=== PATIENT | male | born 1980 | race Two or more races ===

== ENCOUNTER 2019-06-28 14:39 | Inpatient (IN) | payer OTHER ==
[~2019-06-28] VITALS: Ht 190.5 cm; Wt 62.6 kg
--- NOTE | 2019-06-28 14:56 | NUR ---
PTE REFIERE EMILY DOLOR ABDOMINAL SE MARY S/V YS EUBIAC EN AREA DE OBSERVACION
--- NOTE | 2019-06-28 17:38 | NUR ---
PT ALERTA Y ORIENTADO X3 ESFERAS SE LE ORIENTA SOBRE [place] Y REFIERE ENTEDER. SE MARY MUESTRAS DE ENOCH Y VENOPUNCION CON TECNICAS ASEPTICAS. SE ADMINSITRAN MEDICAMENTOS ORDENADOS. PT [place].
[2019-07-19] MEDS ORDERED: AMOX-CLAV 875-1 EACH PO (14:58)
[2019-07-19] MEDS ORDERED: CLONAZEPAM0.5 MG PO (16:38)
[2019-07-19] MEDS ORDERED: AMOX1TAB5 PO (16:38)
[2019-07-19] MEDS ORDERED: INTESTINEX680 M1 PO (16:38)
== END 2019-07-19 18:39 | disposition home or self-care (01) | DRG 391 ==
LOC: ER → SEC-K 21:42 → MEDI 21:42
PROVIDERS: ADMIT Internal Medicine
PROC: BW21YZZ Computerized Tomography (CT Scan) of Abdomen and Pelvis using Other Contrast (ICD-10-PCS; 2019-06-28)
PROC: 3E0336Z Introduction of Nutritional Substance into Peripheral Vein, Percutaneous Approach (ICD-10-PCS; 2019-06-29)
PROC: 02HV33Z Insertion of Infusion Device into Superior Vena Cava, Percutaneous Approach (ICD-10-PCS; 2019-07-04)
PROC: BW21Y0Z Computerized Tomography (CT Scan) of Abdomen and Pelvis using Other Contrast, Unenhanced and Enhanced (ICD-10-PCS; 2019-07-05)
PROC: 0W9F30Z Drainage of Abdominal Wall with Drainage Device, Percutaneous Approach (ICD-10-PCS; principal; 2019-07-10)
DX: K57.20 Diverticulitis of large intestine with perforation and abscess without bleeding (principal); K65.1 Peritoneal abscess; K50.00 Crohn's disease of small intestine without complications; N20.0 Calculus of kidney; R31.29 Other microscopic hematuria; F43.12 Post-traumatic stress disorder, chronic

== ENCOUNTER 2019-07-30 10:59 | Inpatient (IN) | payer OTHER ==
[~2019-07-30] VITALS: Ht 190.5 cm; Wt 57.6 kg
[~2019-07-30 10:59] MED LIST: AMOX-CLAV 875-1 EACH PO; AMOX1TAB5 PO; CLONAZEPAM0.5 MG PO; INTESTINEX680 M1 PO
[2019-08-16] MEDS ORDERED: AMOX1TAB5 PO (12:20)
[2019-08-28] MEDS ORDERED: HYOSCYAMINE0.125 M1 SL (15:04)
[2019-08-28] MEDS ORDERED: INTESTINEX680 M1 PO (15:04)
[2019-08-28] MEDS ORDERED: ULTRACET PO (15:05)
== END 2019-08-28 18:22 | disposition home or self-care (01) | DRG 331 ==
LOC: O/R 08-21 05:50 → SURH 08-21 05:50
PROVIDERS: ADMIT Surgery
PROC: 0DBN4ZZ Excision of Sigmoid Colon, Percutaneous Endoscopic Approach (ICD-10-PCS; 2019-08-21)
PROC: 0DJD8ZZ Inspection of Lower Intestinal Tract, Via Natural or Artificial Opening Endoscopic (ICD-10-PCS; 2019-08-21)
PROC: 0DBP4ZZ Excision of Rectum, Percutaneous Endoscopic Approach (ICD-10-PCS; principal; 2019-08-21 07:30)
PROC: 8E0ZXY6 Isolation (ICD-10-PCS; 2019-08-26)
DX: K57.30 Diverticulosis of large intestine without perforation or abscess without bleeding (principal); I10 Essential (primary) hypertension; F41.9 Anxiety disorder, unspecified; F43.12 Post-traumatic stress disorder, chronic; E16.2 Hypoglycemia, unspecified; R50.9 Fever, unspecified; Z20.828 Contact with and (suspected) exposure to other viral communicable diseases

== ENCOUNTER 2021-02-11 06:40 | Day surgery (SDC) | payer OTHER ==
[~2021-02-11 06:40] MED LIST changes: +HYOSCYAMINE0.125 M1 SL; +ULTRACET PO
== END 2021-02-11 10:30 | disposition home or self-care (01) ==
LOC: AMB-ENDOS 06:40
PROVIDERS: ATTEND Surgery
DX: K62.89 Other specified diseases of anus and rectum (principal); K64.3 Fourth degree hemorrhoids; Z20.822 Contact with and (suspected) exposure to COVID-19

== ENCOUNTER 2022-07-13 06:00 | Day surgery (SDC) | payer OTHER ==
[~2022-07-13] VITALS: Ht 190.5 cm; Wt 63.0 kg
[~2022-07-13 06:00] MED LIST changes: +ATIVAN1 M1 PO; +MAGNESIUM400 M1 PO; +ZOLOFT100 MG PO
[2022-07-13] MEDS ORDERED: POLY119PG PO (14:39)
[2022-07-13] MEDS ORDERED: TRAM1TAB98 PO (14:39)
[2022-07-13] MEDS ORDERED: NEURONTIN300 MG PO (14:39)
== END 2022-07-13 17:30 | disposition home or self-care (01) ==
LOC: CIR.AMB 06:00
PROVIDERS: ATTEND Surgery
DX: K40.90 Unilateral inguinal hernia, without obstruction or gangrene, not specified as recurrent (principal); Z88.6 Allergy status to analgesic agent; Z20.822 Contact with and (suspected) exposure to COVID-19
CPT/HCPCS: 49650; C1781